=== PATIENT | female | born 1960 | race Caucasian/White ===

== ENCOUNTER 2018-05-13 10:00 | Day surgery (SDC) | payer MEDICAID ==
[~2018-05-13] VITALS: Ht 154.9 cm; Wt 63.9 kg
[~2018-05-13 10:00] MED LIST: BUPIVACAINE 0.25% ONE; EPINEPHRINE 1 MG/ML, 1ML ONE; NEOMY/POLYMYXIN B GU IRR. 1 ML IRRIG ONE
[2018-05-13] MEDS ORDERED: LACTATED RINGERS 1,000 ML IV SCH ×2 (10:30→18:20)
[2018-05-13] MEDS ORDERED: LISI-167 PO (10:32)
[2018-05-13] MEDS ORDERED: ATOR20TA86 PO (10:32)
[2018-05-13 10:34] VITALS: BP 121/68
[2018-05-13] MEDS ORDERED: BUPIVACAINE 0.25% ONE (10:43)
[2018-05-13 11:12] LABS: ALANINE AMINOTRANSFERASE 27 U/L (12-78); ALBUMIN 4.1 g/dL (3.4-5.0); ANION GAP 7 mmol/L (5-15); CALCIUM 8.7 mg/dL (8.5-10.1); CHLORIDE 107 mmol/L (98-107)
[2018-05-13 11:15] LABS: ALKALINE PHOSPHATASE 111 U/L (45-117); BILIRUBIN,TOTAL 0.9 mg/dL (0.2-1.0); CREATININE 0.44 mg/dL (0.55-1.02); TOTAL PROTEIN 8.2 g/dL (6.4-8.2)
[2018-05-13] MEDS ORDERED: FENTANYL PF 100 MCG/2ML ONE ×2 (15:33→17:19)
[2018-05-13] MEDS ORDERED: MIDAZOLAM 1 MG/ML, 2ML ONE (15:34)
[2018-05-13] MEDS ORDERED: CEFAZOLIN 1,000 MG ONE (15:39)
[2018-05-13] MEDS ORDERED: GLYCOPYRROLATE 0.2MG/1ML, 5ML ONE (15:39)
[2018-05-13] MEDS ORDERED: PROPOFOL 10 MG/ML, 20ML ONE (15:39)
[2018-05-13] MEDS ORDERED: FENTANYL PF 100 MCG/2ML IV PRN (16:30)
[2018-05-13] MEDS ORDERED: HYDROmorphone 1 MG/ML, 1ML IV PRN ×2 (16:30→18:30)
[2018-05-13] MEDS ORDERED: MIDAZOLAM 1 MG/ML, 2ML IV PRN (16:30)
[2018-05-13] MEDS ORDERED: OXYcodone 5 MG/5 ML ORAL.SOL UDC PO PRN (16:30)
[2018-05-13] MEDS ORDERED: LABETALOL 5MG/ML, 20ML IV PRN (16:30)
[2018-05-13] MEDS ORDERED: ONDANSETRON 2MG/ML, 2ML IVPush PRN (16:30)
[2018-05-13] MEDS ORDERED: MEPERIDINE/PF 25MG/0.5ML IVPush PRN (16:30)
[2018-05-13] MEDS ORDERED: OXYcodone 5 MG/5 ML ORAL.SOL UDC ONE (17:19)
[2018-05-13] MEDS ORDERED: HYDROcodone/APAP 5/325 TABLET PO PRN (18:30)
[2018-05-13] MEDS ORDERED: OXYcodone/APAP 5/325MG TABLET PO PRN (18:30)
[2018-05-13] MEDS ORDERED: KETOROLAC 30 MG/1 ML IV PRN (18:30)
[2018-05-13] MEDS ORDERED: ONDANSETRON 2MG/ML, 2ML IV PRN (18:30)
[2018-05-13] MEDS ORDERED: IBUPROFEN 600 MG TABLET PO PRN (18:30)
== END 2018-05-13 22:18 | disposition home or self-care (01) ==
LOC: OUT 10:00 → 4NOR 18:02 → OUT 22:18
PROVIDERS: ATTEND Obstetrics & Gynecology Female Pelvic Medicine and Reconstructive Surgery
DX: D25.0 Submucous leiomyoma of uterus (principal); D25.1 Intramural leiomyoma of uterus; N81.4 Uterovaginal prolapse, unspecified; N39.46 Mixed incontinence; N88.8 Other specified noninflammatory disorders of cervix uteri; N83.312 Acquired atrophy of left ovary; N83.311 Acquired atrophy of right ovary; I10 Essential (primary) hypertension; E78.00 Pure hypercholesterolemia, unspecified; E11.9 Type 2 diabetes mellitus without complications; Z98.890 Other specified postprocedural states
CPT/HCPCS: 36415; 57265; 57282; 57288; 58552; 80053; 88307; C1771; J0171; J0690; J1885; J2250; J2704; J3010; J3490; J7120; G0378